=== PATIENT | male | born 1995 | race Caucasian/White ===

== ENCOUNTER 2020-10-03 21:59 | Emergency (ER) | payer MEDICAID, OTHER ==
[~2020-10-03] VITALS: Ht 160 cm; Wt 86.2 kg
[2020-10-03 22:09] VITALS: BP 137/90
--- NOTE | 2020-10-04 00:19 | NUR ---
PT CALLED IN LOBBY AND OUT SIDE OF ER NO ANSWER.
--- NOTE | 2020-10-04 00:21 | NUR ---
PT CALLED IN LOBBY AND OUTSIDE WITH NO ANSWER.
--- NOTE | 2020-10-04 00:25 | NUR ---
PER ADMIT STAFF, PT CALLED ON PERSONAL PHONE WITH NO ANSWER. PATIENT LEFT WITHOUT BEING SEEN BY DR. DAVIS. NO FURTHER CARE PROVIDED FOR PATIENT.
== END 2020-10-04 00:25 | disposition left against medical advice (07) ==
LOC: MED 21:59
DX: H53.9 Unspecified visual disturbance (principal); Z53.21 Procedure and treatment not carried out due to patient leaving prior to being seen by health care provider
CPT/HCPCS: 93005; 99281

== ENCOUNTER 2020-10-04 11:02 | Emergency (ER) | payer MEDICAID ==
[~2020-10-04] VITALS: Ht 160 cm; Wt 81.6 kg
[2020-10-04 11:19] VITALS: BP 131/79
--- NOTE | 2020-10-04 11:24 | NUR ---
PT TO LOBBY TO WAIT FOR FURTHER EVALUATION.
--- NOTE | 2020-10-04 12:15 | NUR ---
24 Y/O MALE C/O DIZZINESS [id number] INTERMITTENTLY, PT DENIES SYNCOPAL EPISODES. PT DENIES N/V, DENIES FEVER/CHILLS, DENIES PAIN. DENIES PMH NKA
--- NOTE | 2020-10-04 12:18 | NUR ---
EMT WITH PT IN TRIAGE FOR EKG.
[2020-10-04 12:20] LABS: BASOPHILS % (AUTO) 0.5 % (0.0-2.0); EOSINOPHILS # (AUTO) 0.1 K/uL (0-0.4); EOSINOPHILS % (AUTO) 0.9 % (0.0-4.0); HEMATOCRIT 45.6 % (36-52); HEMOGLOBIN 15.3 g/dL (12.0-18.0); LYMPHOCYTES # (AUTO) 2.5 K/uL (2.0-11.5); LYMPHOCYTES % (AUTO) 25.3 % (20.5-51.1); MEAN CORPUSCULAR HEMOGLOBIN 30 pg (27-31); MEAN CORPUSCULAR HGB CONC 34 g/dL (33-37); MEAN CORPUSCULAR VOLUME 90.7 fL (80-94); MONOCYTES # (AUTO) 0.7 K/uL (0.8-1.0); MONOCYTES % (AUTO) 6.6 % (1.7-9.3); NEUTROPHILS # (AUTO) 6.6 K/uL (1.8-7.7); NEUTROPHILS % (AUTO) 66.7 % (42.2-75.2); PLATELET COUNT (AUTO) 378 K/uL (140-450); RED BLOOD CELL COUNT(AUTO) 5.03 MIL/uL (4.20-6.10); RED CELL DISTRIBUTION WIDTH 13.3 % (11.6-13.7); WHITE BLOOD COUNT (AUTO) 9.9 K/uL (4.8-10.8)
[2020-10-04 12:33] LABS: ANION GAP 12.9 (8-16); CARBON DIOXIDE 26.5 mmol/L (21-32); POTASSIUM 4.4 mmol/L (3.5-5.1)
[2020-10-04 13:59] VITALS: BP 131/79
--- NOTE | 2020-10-04 14:00 | NUR ---
Patient discharged with v/s stable. Written and verbal after care instructions given and explained. Patient verbalized understanding. Ambulatory with steady gait. All questions addressed prior to discharge. Advised to follow up with PMD.
== END 2020-10-04 14:00 | disposition home or self-care (01) ==
LOC: MED 11:02
DX: R53.1 Weakness (principal); R42 Dizziness and giddiness
CPT/HCPCS: 36415; 80048; 85025; 93005; 99284